=== PATIENT | male | born 1980 | race Caucasian/White ===

== ENCOUNTER 2021-05-28 20:32 | Emergency (ER) | payer SELFPAY ==
[~2021-05-28] VITALS: Ht 175.3 cm; Wt 65.8 kg
[2021-05-28 20:40] VITALS: BP_SYST 133
[2021-05-28] MEDS ORDERED: DIPH-TET-PERTUS Vaccine 0.5 ML VIAL (ADACEL) I.M. ONE (21:30)
[2021-05-28] MEDS ORDERED: RABIES IMMUNE GLOBULIN 300 UNIT/2 ML I.M. ONE (22:00)
[2021-05-28] MEDS ORDERED: AUG875 PO (22:42)
[2021-05-28] MEDS ORDERED: AMOXICILLIN/CLAVULANATE POTASSIUM 875 MG TABLET PO ONE (22:45)
== END 2021-05-28 23:14 | disposition home or self-care (01) ==
LOC: SED 20:32
DX: S51.832A Puncture wound without foreign body of left forearm, initial encounter (principal); W54.0XXA Bitten by dog, initial encounter; Y93.89 Activity, other specified; Y92.89 Other specified places as the place of occurrence of the external cause; Y99.8 Other external cause status
CPT/HCPCS: 90376; 90715; 99283